=== PATIENT | male | born 1985 | race Caucasian/White ===

== ENCOUNTER 2019-06-09 01:41 | Emergency (ER) | payer OTHER ==
[~2019-06-09] VITALS: Ht 185.4 cm; Wt 79.4 kg
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
[2019-06-09 02:11] VITALS: BP 128/87
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
--- NOTE | 2019-06-09 02:20 | NUR ---
ER Nurse Note: Pt back from radiology. cleared pt for discharge.
[2019-06-09 02:25] VITALS: BP 128/87
--- NOTE | 2019-06-09 02:25 | NUR ---
ER Nurse Note: Pt seen, treated, medically cleared for discharge by ERMD. Discharge instuctions and prescriptions given with repeat verbalization by pt. Emphasized to follow up with primay care provider. All orders completed per ERMD orders. Pt a&ox4, VSS, no signs of distress. ID band removed. All questions answered per pt's questions. Pt left with all belongings with appropriate clothing, left with own transportation.
== END 2019-06-09 02:25 | disposition home or self-care (01) ==
LOC: EMR 02:10
DX: S09.90XA Unspecified injury of head, initial encounter (principal); Y35.811A Legal intervention involving manhandling, law enforcement official injured, initial encounter; Y92.9 Unspecified place or not applicable; Y99.0 Civilian activity done for income or pay
CPT/HCPCS: 70450; 99284